=== PATIENT | male | born 1985 ===

== ENCOUNTER 2019-09-30 15:10 | Emergency (ER) | payer SELFPAY ==
[2019-09-30] MEDS ORDERED: Ketorolac 30 MG/ML SDV IVPUSH ONE (15:40)
[2019-09-30] MEDS ORDERED: Azithromycin 250 MG Tab PO ONE (15:46)
--- NOTE | 2019-09-30 17:16 | US ---
EXAMINATION: Scrotum and Contents SEX: Male AGE: 34 years CLINICAL HISTORY: 34-year-old male complaining of LEFT scrotal/testicular pain and swelling. INTERPRETATION: 1. Normal right testicle measures 4.7 cm L x 3.7 cm W x 2.3 cm AP diameter with good blood flow and homogeneous parenchymal density. No sign of hyperemia, right testicular mass or infarct. 2. No epididymal mass on the right. No hydrocele. 3. Left testicle normal configuration and homogeneously dense but demonstrates abnormally elevated vascular flow (hyperemia). Associated small hydrocele scrotum on the left. 4. Markedly abnormal blood flow swallowing ipsilateral left epididymis. Solitary tiny 4 x 6 mm left epididymal cyst. 5. Left testicle measures 4.6 cm L x 2.9 cm W x 2.6 cm AP diameter. CONCLUSION: Abnormal INFLAMMATORY CHANGES involving the left testicle AND ipsilateral epididymis. No tumor mass or infarct.
--- NOTE | 2019-09-30 17:22 | EDM.PDOC ---
Scribed by Kristina Stubbs 09/30/19 [id number] for Gavin Cota MD ED HPI GENERAL MEDICAL PROBLEM - General Chief Complaint: Genitourinary Problem Stated Complaint: POSSIBLE HERRNIA Time Seen by Provider: 09/30/19 15:30 Source of Information: Reports: Patient, RN, RN Notes Reviewed History Limitations: Reports: No Limitations - History of Present Illness INITIAL COMMENTS - FREE TEXT/NARRATIVE: Patient presents to ER stating that he has left testicle swelling. This started after shovelling this weekend. It has not improved. Denies fevers or chills. Denies urinary symptoms. Denies penile discharge. Denies any discomfort with bowel movement or bowel habit changes. Onset Date: 09/26/19 Duration: Getting Worse Location: Reports: Other (left testicle) Quality: Reports: Ache Severity: Moderate Improves with: Reports: None Worsens with: Reports: None Associated Symptoms: Reports: No Other Symptoms Left Scrotum Pain Score (Numeric/FACES): 5 - Related Data Allergies Allergy/AdvReac Type Severity Reaction Status Date / Time No Known Allergies Allergy Verified 09/30/19 15:18 Home Meds: Home Meds . [No Known Home Meds] 09/30/19 [History] Past Medical History - Past Health History Medical/Surgical History: Denies Medical/Surgical History HEENT History: Reports: None Cardiovascular History: Reports: None Respiratory History: Reports: None Gastrointestinal History: Reports: None Genitourinary History: Reports: None Musculoskeletal History: Reports: None Neurological History: Reports: None Psychiatric History: Reports: None Endocrine/Metabolic History: Reports: None Hematologic History: Reports: None Immunologic History: Reports: None Oncologic (Cancer) History: Reports: None Dermatologic History: Reports: None - Infectious Disease History Infectious Disease History: Reports: None - Past Surgical History Head Surgeries/Procedures: Reports: None Social & Family History - Family History Family Medical History: Noncontributory - Tobacco Use Smoking Status *Q: Current Every Day Smoker Years of Tobacco use: 10 Packs/Tins Daily: 1 - Caffeine Use Caffeine Use: Reports: Soda - Alcohol Use Days Per Week of Alcohol Use: 7 Number of Drinks Per Day: 2 Total Drinks Per Week: 14 - Recreational Drug Use Recreational Drug Use: Yes Drug Use in Last 12 Months: Yes Recreational Drug Type: Reports: Marijuana/Hashish Recreational Drug Use Frequency: Daily ED ROS GENERAL - Review of Systems Review Of Systems: Comprehensive ROS is negative, except as noted in HPI. ED EXAM, RENAL/ - Physical Exam Exam: See Below Exam Limited By: No Limitations General Appearance: Alert, WD/WN, No Apparent Distress Head: Atraumatic, Normocephalic GI/Abdominal: Normal Bowel Sounds, Soft, Non-Tender, No Organomegaly, No Distention, No Abnormal Bruit, No Mass (Male) Exam: No Hernia, Circumcised, Scrotal Swelling (left), Scrotum Tenderness (L), Testicular Tenderness (L), Other (left scrotal erythema). No: Inguinal Lymphadenopathy, Penile Lesions, Rash, Scrotum Tenderness (R), Testicular Mass, Testicular Tenderness (R), Urethral Discharge Rectal (Males) Exam: Deferred Back Exam: Normal Inspection Extremities: Normal Inspection Neurological: Alert, No Motor/Sensory Deficits Psychiatric: Normal Mood Course - Vital Signs Last Recorded V/S: Last Vital Signs Temp 97.0 F 09/30/19 15:19 Pulse 112 H 09/30/19 15:19 Resp 16 09/30/19 15:19 BP 128/84 09/30/19 15:19 Pulse Ox 100 09/30/19 15:19 - Orders/Labs/Meds Orders: Active Orders 24 hr Category Date Time Status CHLAMYDIA AND GONORRHEA BY TMA Routine Lab 09/30/19 16:56 Received Labs: Laboratory Tests 09/30/19 09/30/19 09/30/19 Range/Units 15:49 15:49 16:56 WBC 13.6 H (5.0-10.0) 10^3/uL RBC 4.54 L (4.6-6.2) 10^6/uL Hgb 14.2 (14.0-18.0) g/dL Hct 41.6 (40.0-54.0) % MCV 91.6 (80-100) fL MCH 31.3 (27.0-34.0) pg MCHC 34.1 (33.0-35.0) g/dL Plt Count 239 (150-450) 10^3/uL Neut % (Auto) 71.7 (42.2-75.2) % Lymph % (Auto) 19.9 L (20.5-50.1) % [place] % (Auto) 6.7 (2-8) % Eos % (Auto) 1.6 (1.0-3.0) % Baso % (Auto) 0.1 (0.0-1.0) % C-Reactive Protein 5.3 H (0.0-1.3) mg/dL Urine Color Yellow (YELLOW) Urine Appearance Clear (CLEAR) Urine pH 7.0 (5.0-9.0) Ur Specific [place] 1.020 (1.005-1.030) Urine Protein Negative (NEGATIVE) Urine Glucose (UA) Negative (NEGATIVE) Urine Ketones Negative (NEGATIVE) Urine Occult Blood Negative (NEGATIVE) Urine Nitrite Negative (NEGATIVE) Urine Bilirubin Negative (NEGATIVE) Urine Urobilinogen 0.2 (0.2-1.0) mg/dL Ur Leukocyte Esterase Negative (NEGATIVE) Meds: Medications Discontinued Medications Generic Name Dose Route Start Last Admin Trade Name Freq PRN Reason Stop Dose Admin Azithromycin 1,000 mg 09/30/19 15:46 09/30/19 16:46 Zithromax PO 09/30/19 15:47 1,000 mg ONETIME ONE Administration Ceftriaxone Sodium 2,000 mg/ 100 mls @ 200 mls/hr 09/30/19 15:45 09/30/19 16: 46 Sodium Chloride IV 09/30/19 16:14 200 mls/hr ONETIME ONE Administration Ketorolac Tromethamine 30 mg 09/30/19 15:40 09/30/19 16:46 Toradol IVPUSH 09/30/19 15:41 30 mg ONETIME ONE Administration - Radiology Interpretation Free Text/Narrative:: Left scrotal testicular ultrasound: Epididymitis/orchitis with hydrocele. Epididymal cyst is [id number]. ? synechial epididymal area. Hyperemic flow testicle /epididymidis. No testicular mass. Departure - Departure Time of Disposition: 17:20 Disposition: Home, Self-Care 01 Condition: Good Clinical Impression: Orchitis and epididymitis - Discharge Information *PRESCRIPTION DRUG MONITORING PROGRAM REVIEWED*: No *COPY OF PRESCRIPTION DRUG MONITORING REPORT IN PATIENT KEI: No Instructions: Epididymitis Forms: ED Department Discharge Additional Instructions: Rx: Doxycycline 100mg Rx: Naprosyn 500mg Rx: Hydrocodone APAP 5mg/325mg *Do not drive or work while under the influence of this medication. Bed rest, elevate scrotum with a pillow and apply ice packs, minimize walking and no strenuous activity for 7 to 10 days. Follow up in clinic next week with your primary doctor for recheck. Sepsis Event Note - Evaluation Sepsis Screening Result: No Definite Risk - Focused Exam Vital Signs: Vital Signs Temp Pulse Resp BP Pulse Ox 09/30/19 15:19 97.0 F 112 H 16 128/84 100 Date Exam was Performed: 09/30/19 Time Exam was Performed: 17:20 - My Orders Last 24 Hours: My Active Orders 09/30/19 16:56 CHLAMYDIA AND GONORRHEA BY TMA Routine - Assessment/Plan Last 24 Hours: My Active Orders 09/30/19 16:56 CHLAMYDIA AND GONORRHEA BY TMA Routine I have read and agree with the documentation that has been completed regarding this visit. By signing this record, I attest that the documentation was completed in my physical presence and is an accurate record of the encounter.
== END 2019-09-30 17:49 | disposition home or self-care (01) ==
LOC: DL.ED 15:10
DX: N45.3 Epididymo-orchitis (principal); F17.210 Nicotine dependence, cigarettes, uncomplicated
CPT/HCPCS: 36415; 76870; 81003; 85025; 86140; 87491; 87591; 96365; 96375; 99284; A9270; J0696; J1885; J7050

== ENCOUNTER 2021-08-03 09:05 | Emergency (ER) | payer SELFPAY ==
[2021-08-03] MEDS ORDERED: Sodium Chloride 0.9% 10 ML Syringe FLUSH PRN (09:59)
--- NOTE | 2021-08-03 09:59 | EDM.PDOC ---
"ED HPI GENERAL MEDICAL PROBLEM - General Chief Complaint: Eye Problems Stated Complaint: [id number] EYE SWOLLEN FACE SWOLLEN STYE? Time Seen by Provider: 08/03/21 09:59 Source of Information: Reports: Patient, RN, RN Notes Reviewed History Limitations: Reports: No Limitations - History of Present Illness INITIAL COMMENTS - FREE TEXT/NARRATIVE: Pt presents to ER by POV with c/o pain, swelling, and redness around the right eye. Pt states that a few days ago he had a little pimple just below the right eyebrow which he squeezed on. The next day the upper eyelid became mildly red. Today he woke with the right eye swollen shut with redness and tenderness from the right eyebrow across the eyelid and down onto the right face. Admits to small amount of watery discharge from the right eye, and mild matting when he first woke this morning. Denies blurry vision, although now the eye is swollen shut. Denies fever, chills, headache, neck pain, or any other symptoms. Pt is unsure if he has ever had a MRSA infection or not. Onset: Gradual Duration: Day(s): (2), Getting Worse Location: Reports: Face Quality: Reports: Ache Severity: Moderate Improves with: Reports: None Worsens with: Reports: None Associated Symptoms: Reports: No Other Symptoms Right Eye Pain Score (Numeric/FACES): 5 - Related Data Allergies Allergy/AdvReac Type Severity Reaction Status Date / Time No Known Allergies Allergy Verified 08/03/21 10:04 Home Meds: Home Meds . [No Known Home Meds] 09/30/19 [History] Past Medical History - Past Health History Medical/Surgical History: Denies Medical/Surgical History HEENT History: Reports: None Cardiovascular History: Reports: None Respiratory History: Reports: None Gastrointestinal History: Reports: None Genitourinary History: Reports: None Musculoskeletal History: Reports: None Neurological History: Reports: None Psychiatric History: Reports: None Endocrine/Metabolic History: Reports: None Hematologic History: Reports: None Immunologic History: Reports: None Oncologic (Cancer) History: Reports: None Dermatologic History: Reports: None - Infectious Disease History Infectious Disease History: Reports: None - Past Surgical History Head Surgeries/Procedures: Reports: None Social & Family History - Family History Family Medical History: No Pertinent Family History - Caffeine Use Caffeine Use: Reports: Soda ED ROS GENERAL - Review of Systems Review Of Systems: Comprehensive ROS is negative, except as noted in HPI. ED EXAM GENERAL W FULL EYE - Physical Exam Exam: See Below Exam Limited By: No Limitations General Appearance: Alert, WD/WN, No Apparent Distress Eye Exam: Right Eye: Conjunctival Injection, Periorbital Changes (Rt swollen shut with erythema, no purulent drainage), Left Eye: Normal Inspection, Bilateral Eye: EOMI Eyelids: Right: Edema (with small subacute lesion consistent with a recently squeezed pimple), Erythema, Left: Normal Appearance Conjunctiva & Sclera: Right: Injected, Left: Normal Appearance Extraocular Movements: Bilateral: Intact Pupils: Normal Accommodation Pupillary Size: Bilateral: 3 mm Pupillary Reaction: Bilateral: Brisk Ears: Normal External Exam Nose: Normal Inspection Throat/Mouth: Normal Inspection Head: Atraumatic, Normocephalic, Facial Tenderness (Right infraorbital face) Neck: Normal Inspection, Supple, Non-Tender, Full Range of Motion. No: Lymphadenopathy (L), Lymphadenopathy (R) Respiratory/Chest: No Respiratory Distress Cardiovascular: Regular Rate, Rhythm Neurological: Alert, Oriented, CN II-XII Intact, No Motor/Sensory Deficits Psychiatric: Normal Mood Skin Exam: Warm, Dry, Intact Course - Vital Signs Last Recorded V/S: Last Vital Signs Temp 97.4 F 08/03/21 10:03 Pulse 105 H 08/03/21 10:03 Resp 18 08/03/21 10:03 BP 140/86 08/03/21 10:03 Pulse Ox 97 08/03/21 10:03 - Orders/Labs/Meds Orders: Active Orders 24 hr Category Date Time Status Peripheral IV Care [RC] . DIRECTED Care 08/03/21 09:59 Active Sodium Chloride 0.9% [Saline Flush] Med 08/03/21 09:59 Active 10 ml FLUSH ASDIRECTED PRN Peripheral IV Insertion Adult [OM.PC] Stat Oth 08/03/21 09:59 Ordered Medication Orders Sodium Chloride (Sodium Chloride 0.9% 10 Ml Syringe) 10 ml FLUSH ASDIRECTED PRN PRN Reason: Keep Vein Open Labs: Laboratory Tests 08/03/21 08/03/21 Range/Units 10:10 10:10 WBC 12.6 H (5.0-10.0) 10^3/uL RBC 4.94 (4.6-6.2) 10^6/uL Hgb 15.0 (14.0-18.0) g/dL Hct 45.0 (40.0-54.0) % MCV 91.1 (80-100) fL MCH 30.4 (27.0-34.0) pg MCHC 33.3 (33.0-35.0) g/dL Plt Count 209 (150-450) 10^3/uL Neut % (Auto) 73.5 (42.2-75.2) % Lymph % (Auto) 16.2 L (20.5-50.1) % [place] % (Auto) 8.1 H (2-8) % Eos % (Auto) 2.0 (1.0-3.0) % Baso % (Auto) 0.2 (0.0-1.0) % Sodium 142 (136-145) mmol/L Potassium 3.9 (3.5-5.1) mmol/L Chloride 106 (98-107) mmol/L Carbon Dioxide 29 (21-32) mmol/L Anion Gap 10.9 (7-13) mEq/L BUN 10 (7-18) mg/dL Creatinine 0.79 (0.70-1.30) mg/dL Est Cr Clr Drug Dosing 141.88 mL/min Estimated GFR (MDRD) > 60 Glucose 100 H (70-99) mg/dL Calcium 8.3 L (8.5-10.1) mg/dL C-Reactive Protein 1.8 H (0.0-0.9) mg/dL Meds: Medications Generic Name Dose Route Start Last Admin Trade Name Freq PRN Reason Stop Dose Admin Sodium Chloride 10 ml 08/03/21 09:59 Sodium Chloride 0.9% 10 Ml Syringe FLUSH ASDIRECTED PRN Keep Vein Open Discontinued Medications Generic Name Dose Route Start Last Admin Trade Name Freq PRN Reason Stop Dose Admin Dexamethasone 20 mg 08/03/21 10:04 08/03/21 10:15 Dexamethasone 4 Mg/Ml Sdv IVPUSH 08/03/21 10:05 20 mg ONETIME ONE Administration Hydromorphone HCl 1 mg 08/03/21 10:04 08/03/21 10:27 Hydromorphone 1 Mg/Ml Syringe IVPUSH 08/03/21 10:05 1 mg ONETIME ONE Administration Piperacillin Sod/Tazobactam 100 mls @ 200 mls/hr 08/03/21 10:02 08/03/21 10:33 Sod 4.5 gm/ Sodium Chloride IV 08/03/21 10:31 200 mls/hr ONETIME ONE Administration Vancomycin HCl 1.5 gm/ Premix 300 mls @ 200 mls/hr 08/03/21 10:15 08/03/21 10:54 IV 08/03/21 11:44 200 mls/hr ONETIME ONE Administration Iopamidol 100 ml 08/03/21 10:56 08/03/21 11:12 Iopamidol 612 Mg/Ml 100 Ml Bottle IVPUSH 08/03/21 10:57 100 ml ONETIME ONE Administration Ondansetron HCl 4 mg 08/03/21 10:05 08/03/21 10:27 Ondansetron 4 Mg/2 Ml Sdv IV 08/03/21 10:06 4 mg ONETIME ONE Administration - Radiology Interpretation Free Text/Narrative:: [facility] Final Radiology Report Call: [phone] assistance Online chat: [email or web address] Name: JUAN JOSE HARRELL Age: 36Years M Date: 08/03/2021 SSN: -- : [id number] Study: CT MAX FACIAL SINUS W CONT Requesting Physician: HAMLET JACKSON Images: 250 Addl Studies: Provided Clinical History: Rt eye swollen shut, erythematous, infected Contrast: With Contrast Medium: ISOVUE 300 Contrast Amount: 100 mL Contrast Method: Intravenous (IV) Page 1 of 2 PROCEDURE INFORMATION: Exam: CT Maxillofacial With Contrast Exam date and time: 08/03/2021 11:04 AM Age: 36 years old Clinical indication: Mass, lump, or swelling; Other: Right eye; Additional info: RT eye swollen shut, erythematous, infected TECHNIQUE: Imaging protocol: Computed tomography images of the face with intravenous contrast. Radiation optimization: All CT scans at this facility use at least one of these dose optimization techniques: automated exposure control; mA and/or kV adjustment per patient size (includes targeted exams where dose is matched to clinical indication); or iterative reconstruction. Contrast material: ISOVUE 300; Contrast volume: 100 ml; Contrast route: INTRAVENOUS (IV); COMPARISON: No relevant prior studies available. FINDINGS: Orbital cavity: There is soft tissue swelling of the right preseptal orbit extending into the temporal region and cheek. There is associated edema but no drainable rim enhancing fluid collection or preseptal abscess. There is no evidence of postseptal involvement. Ocular globes appear intact. No evidence of orbital mass. Bones/joints: No evidence of acute fracture. Paranasal sinuses: There is small right maxillary sinus retention cyst or polyp. Soft tissues: Unremarkable. Vasculature: There is normal contrast enhancement and caliber of bilateral carotid and vertebral arteries. Bilateral jugular veins are patent. Cavernous sinuses appear symmetric and show no evidence of thrombosis. Superior ophthalmic veins show contrast enhancement. JUAN JOSE HARRELL | Final Radiology Report CONFIDENTIALITY STATEMENT This report is intended only for use by the referring physician, and only in accordance with law. If you received this in error, call [phone]. Page 2 of 2 Nasal cavity: There is a polypoid density in left nasal cavity measuring approximately 6 mm x 23 mm x 15 mm likely a nasal polyp, located lateral to the middle turbinate. IMPRESSION: 1. Right preseptal cellulitis without evidence of postseptal involvement. 2. Left nasal polyp. Thank you for allowing us to participate in the care of your patient. Dictated and Authenticated by: Mara Reddy MD 08/03/2021 11:31 AM Central Time ([place] & [place]) Departure - Departure Time of Disposition: 12:29 Disposition: Home, Self-Care 01 Condition: Good Clinical Impression: Preseptal cellulitis of right eye - Discharge Information *PRESCRIPTION DRUG MONITORING PROGRAM REVIEWED*: Not Applicable *COPY OF PRESCRIPTION DRUG MONITORING REPORT IN PATIENT KEI: Not Applicable Instructions: Preseptal Cellulitis, Adult Forms: ED Department Discharge Additional Instructions: Rx: Augmentin 875mg Rx: Bactrim DS Gentamicin Ophthalmic Solution 0.3% One drop to right eye 4 times a day for five days. Follow up in clinic in 3 to 4 days for recheck if not improving as expected. Return to ER if worse at any time. Sepsis Event Note (ED) - Focused Exam Vital Signs: Vital Signs Temp Pulse Resp BP Pulse Ox 08/03/21 10:03 97.4 F 105 H 18 140/86 97 - My Orders Last 24 Hours: My Active Orders 08/03/21 09:59 Peripheral IV Care [RC] . DIRECTED Sodium Chloride 0.9% [Saline Flush] 10 ml FLUSH ASDIRECTED PRN Peripheral IV Insertion Adult [OM.PC] Stat - Assessment/Plan Last 24 Hours: My Active Orders 08/03/21 09:59 Peripheral IV Care [RC] . DIRECTED Sodium Chloride 0.9% [Saline Flush] 10 ml FLUSH ASDIRECTED PRN Peripheral IV Insertion Adult [OM.PC] Stat"
[2021-08-03] MEDS ORDERED: Piperacillin/Tazobactam 4.5 GM in Sodium Chloride 0.9% 100 ML IV ONE (10:02)
[2021-08-03] MEDS ORDERED: HYDROmorphone 1 MG/ML Syringe IVPUSH ONE (10:04)
[2021-08-03] MEDS ORDERED: Dexamethasone 4 MG/ML SDV IVPUSH ONE (10:04)
[2021-08-03] MEDS ORDERED: Ondansetron 4 MG/2 ML SDV IV ONE (10:05)
[2021-08-03] MEDS ORDERED: VANCOmycin 1.5 GM/300 ML 1.5 GM in Premix Bag 1 BAG IV ONE (10:15)
[2021-08-03 10:36] LABS: ANION GAP 10.9 mEq/L (7-13); CHLORIDE,CL 106 mmol/L (98-107); SODIUM,NA 142 mmol/L (136-145)
[2021-08-03] MEDS ORDERED: Iopamidol 612 MG/ML 100 ML Bottle IVPUSH ONE (10:56)
--- NOTE | 2021-08-03 11:31 | CT ---
PROCEDURE INFORMATION: Exam: CT Maxillofacial With Contrast Exam date and time: 08/03/2021 11:04 AM Age: 36 years old Clinical indication: Mass, lump, or swelling; Other: Right eye; Additional info: RT eye swollen shut, erythematous, infected TECHNIQUE: Imaging protocol: Computed tomography images of the face with intravenous contrast. Radiation optimization: All CT scans at this facility use at least one of these dose optimization techniques: automated exposure control; mA and/or kV adjustment per patient size (includes targeted exams where dose is matched to clinical indication); or iterative reconstruction. Contrast material: ISOVUE 300; Contrast volume: 100 ml; Contrast route: INTRAVENOUS (IV); COMPARISON: No relevant prior studies available. FINDINGS: Orbital cavity: There is soft tissue swelling of the right preseptal orbit extending into the temporal region and cheek. There is associated edema but no drainable rim enhancing fluid collection or preseptal abscess. There is no evidence of postseptal involvement. Ocular globes appear intact. No evidence of orbital mass. Bones/joints: No evidence of acute fracture. Paranasal sinuses: There is small right maxillary sinus retention cyst or polyp. Soft tissues: Unremarkable. Vasculature: There is normal contrast enhancement and caliber of bilateral carotid and vertebral arteries. Bilateral jugular veins are patent. Cavernous sinuses appear symmetric and show no evidence of thrombosis. Superior ophthalmic veins show contrast enhancement. Nasal cavity: There is a polypoid density in left nasal cavity measuring approximately 6 mm x 23 mm x 15 mm likely a nasal polyp, located lateral to the middle turbinate. IMPRESSION: 1. Right preseptal cellulitis without evidence of postseptal involvement. 2. Left nasal polyp.
[2021-08-03] MEDS ORDERED: Gentamicin 0.3% Ophth Soln 5 ML Bottle EYELF ONE (12:35)
== END 2021-08-03 12:54 | disposition home or self-care (01) ==
LOC: DL.ED 09:05
DX: L03.213 Periorbital cellulitis (principal)
CPT/HCPCS: 36415; 70487; 80048; 85025; 86140; 96365; 96366; 96367; 96375; 99284; A9270; J1100; J1170; J2405; J2543; J3370; Q9967

== ENCOUNTER 2024-10-27 03:49 | Emergency (ER) | payer MEDICAID ==
[2024-10-27] MEDS: Albuterol/Ipratropium 3.0-0.5 MG/3 ML Neb Soln NEB ONE (04:02)
[2024-10-27] MEDS: Dexamethasone 4 MG/ML SDV PO ONE (04:02)
[2024-10-27] MEDS: Azithromycin 250 MG Tab PO ONE (04:42)
[2024-10-27] MEDS: Albuterol 6.7 GM Inhaler INH ONE (04:47)
== END 2024-10-27 04:51 | disposition home or self-care (01) ==
LOC: DL.ED 03:49
DX: J40 Bronchitis, not specified as acute or chronic (principal); F17.210 Nicotine dependence, cigarettes, uncomplicated; F17.290 Nicotine dependence, other tobacco product, uncomplicated
CPT/HCPCS: 71045; 87428; 99285; A9270; J1100; 99283; J7620-GY